=== PATIENT | female | born 1930 | race Caucasian/White ===

== ENCOUNTER 2016-11-25 21:35 | Inpatient (IN) | payer OTHER, MEDICARE ==
[~2016-11-25] VITALS: Ht 160 cm; Wt 94.4 kg
--- NOTE | ~2016-11-25 | EKG ---
[address] [address] ELECTROCARDIOGRAM REPORT Name: EZRA MORALES Room #: 205- ADM IN M.R.#: [id number] Admission: 11/25/16 Attend Phys: Hi Carranza MD Discharge: Date of : 31 Report #: [id number] THIS REPORT FOR: //name// [facility] Test Date: 2016-11-27 Test Time: 06:46:53 Pat Name: EZRA MORALES Department: Room: 205 P Gender: F Electrical Panel Builder: denia TEEB: 1930 Requested By: Eduardo Gloria Order Number: [id number] MD: Woo Griffin Measurements Intervals [place] Rate: 68 P: 43 [place]: 156 QRS: 73 QRSD: 105 T: 202 QT: 393 QTc: 418 Interpretive Statements Sinus rhythm Probable anteroseptal infarct, age indeterminate T wave abnormality, consider lateral ischemia Compared to ECG 11/26/2016 08:30:08 Lateral T wave abnormality is now present Electronically Signed On 11-27-2016 16:28:42 CDT by Woo Griffin [email or web address] <ELECTRONICALLY SIGNED> By: Woo Griffin MD, [facility] 11/27/16 1628 0646 0646 Woo Griffin MD, [facility] /EPI
--- NOTE | ~2016-11-25 | EKG ---
[address] [address] ELECTROCARDIOGRAM REPORT Name: EZRA MORALES Room #: 205- ADM IN M.R.#: [id number] Admission: 11/25/16 Attend Phys: Hi Carranza MD Discharge: Date of : 31 Report #: [id number] THIS REPORT FOR: //name// [facility] Test Date: 2016-11-28 Test Time: 06:34:05 Pat Name: EZRA MORALES Department: Room: 205 Gender: F Gluer Machine Setup Operator: denia TEEB: 1930 Requested By: Eduardo Gloria Order Number: [id number] MD: Woo Griffin Measurements Intervals [place] Rate: 70 P: 36 [place]: 158 QRS: 105 QRSD: 112 T: 211 QT: 375 QTc: 405 Interpretive Statements Sinus rhythm Left posterior fascicular block Probable anterior infarct, age indeterminate T wave abnormality, consider lateral ischemia Compared to ECG 11/27/2016 06:46:53 High lateral T wave abnormality is less pronounced Electronically Signed On 11-28-2016 8:33:25 CDT by Woo Griffin [email or web address] <ELECTRONICALLY SIGNED> By: Woo Griffin MD, [facility] 11/28/16 0833 0634 0634 Woo Griffin MD, [facility] /EPI
--- NOTE | ~2016-11-25 | H ---
[facility] [place] [address] HISTORY AND PHYSICAL Name: EZRA MORALES Room #: 205-P ADM IN M.R.#: [id number] Admission: 11/25/16 Attend Phys: Hi Carranza MD Discharge: Date of : 31 Report #: [id number] THIS REPORT FOR: //name// CC: Richard Carranza ATTENDING PHYSICIAN: Dr. Roberson. PRIMARY CARE PHYSICIAN: Dr. Benitez at [facility]. CHIEF COMPLAINT: Chest pain. HISTORY OF PRESENT ILLNESS: The patient is an 85-year-old female who presented to [facility] with complaints of chest pain that started this evening. She was sitting at rest when this pain came on across her mid chest and radiated across her chest and down into both arms. The pain was very heavy and tight. She did and felt nauseous, but did not vomit. She did not feel short of breath. She did have a slightly similar episode the night prior and she said it felt more like indigestion and she thought it was because she had eaten a lot of black eyed peas causing some GI upset. She was initially evaluated at an [facility] facility and her EKG showed ST elevation of V1 and aVR with ST depression in V4 through V6 and I and II. She was given Plavix 600 mg, nitroglycerin sublingual as well as nitro paste, Zofran, Lopressor and she was started on a heparin drip after discussions by the ER physician and Dr. Gloria with Cardiology here. She was transferred here for further cardiac evaluation. She said at some point her pain completely resolved and she is now resting comfortably. She does not take any current blood thinners. She does have a history of coronary artery disease with a prior MD and has 1 cardiac stent. She normally follows with Dr. Burnett. Her last heart catheterization was done in 2011 and showed a patent stent of the RCA that had been previously placed. There was mild left main disease. The circumflex was diffusely diseased. There was collateralization of the PDA, which was occluded and she was continued with aggressive risk factor modification. She states she had a stress test 3 years ago and she reports that there was a persistent defect that had been previously seen, but no new changes. She denies any recent exertional dyspnea or chest pain or indigestion episodes. Her initial troponin was 0.37. Her only complaint right now is slight headache. 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 PAST SURGICAL HISTORY: Right mastectomy, 1 cardiac stent, finger repair, ORIF of the tibia fibula, right shoulder repair. [address] [address] HISTORY AND PHYSICAL Name: CROWHUGOBIANCAEZRA M Room #: 205-P [facility] IN .R.#: [id number] Admission: 11/25/16 Attend Phys: Hi Carranza MD Discharge: Date of : 31 Report #: [id number] ALLERGIES: ASPIRIN caused nosebleed; BENZOCAINE, unknown reaction; LISINOPRIL, unknown reaction. HOME MEDICATIONS: Acyclovir 400 mg at bedtime, metformin 1000 mg p.o. b.i.d., levothyroxine 137 mcg daily, oxybutynin 5 mg p.o. t.i.d., coenzyme Q10 100 mg daily, daily and Lantus insulin 30 units at bedtime and gabapentin she thinks 300 mg twice a day. SOCIAL HISTORY: The patient is a never smoker. She does drink an occasional glass of wine. Denies any drug use. She lives at home alone. She is a . She ambulates with a walker. FAMILY HISTORY: Her mother had stroke and at the age of 84. Her father had an enlarged heart and at the age of 57. She denies any family members with coronary artery disease. REVIEW OF SYSTEMS: Twelve-point review of systems was reviewed with the patient, otherwise negative unless stated in the HPI. PHYSICAL EXAMINATION: GENERAL: The patient is an alert female in no acute distress. VITAL SIGNS: Temperature is 36.6, heart rate 99, respirations 18, blood pressure is 140/88, oxygen 96% on room air. HEENT: PERRLA. Sclerae nonicteric. Oral mucosa is pink and moist. NECK: Supple, no JVD noted. CARDIAC: Normal S1, S2. No murmurs, rubs or gallops. RESPIRATORY: Breath sounds are clear bilaterally. No wheezing or rhonchi. She is diminished in the right lower lobe. ABDOMEN: Obese, but soft and nontender with positive bowel sounds. VASCULAR: Both her feet are very cool and her pedal pulse on the right is 2+, but on the left was only dopplerable, it was not palpable. There was no mottling or cyanosis of the left foot. No peripheral edema noted and radial pulses are 2+ bilaterally. NEUROLOGIC: The patient is alert and oriented x 3. Speech is clear. She is moving all extremities equally. No focal neuro deficits noted. LABORATORY DATA AND DIAGNOSTICS: WBC is 6.5, hemoglobin 15.6, platelets 208. Sodium 143, potassium 3.8, BUN 13, creatinine 0.7, glucose 208, magnesium 1.6. Initial troponin was 0.37 and EKG showed marked ST abnormality with elevation of V1 and aVR with ST depression of V4 through V6 and leads I and II. There was an occasional PVC. ASSESSMENT AND PLAN: 1. Non-ST elevation myocardial infarction versus ST elevation myocardial infarction equivalent due to ST elevation of V1 and aVR. Cardiology has already [facility] [address] [place] [address] HISTORY AND PHYSICAL Name: EZRA MORALES Room #: 205-[facility] IN [facility]#: [id number] Admission: 11/25/16 Attend Phys: Hi Carranza MD Discharge: Date of : 31 Report #: [id number] been notified and she remains on a heparin drip. She was already loaded with Plavix and given nitroglycerin. We will check serial enzymes and continue to monitor on telemetry. She is now pain free. Continue plan per Cardiology. 2. Diabetes. Blood sugar is elevated. We will keep her n.p.o. for possible heart catheterization, but add sliding scale insulin and Accu-Cheks and then resume Lantus when taking p.o. 3. Hypomagnesium. This will be replaced. 4. Possible arterial compromise of the left lower extremity. Both her feet are cool, but on the left, there was no palpable pulse, this was obtained slightly by Doppler only. We will check an arterial ultrasound of the left lower extremity in the morning. Continue with heparin drip. 5. Hypertension. Blood pressure is stable. She is not on any current blood pressure medications at home, continue to monitor. 6. Hypothyroidism. Check TSH level. Continue Synthroid. 7. Hyperlipidemia. She is not on any current treatment since she has been intolerant to statins in the past. Check a lipid panel. 8. Obstructive sleep apnea. Continue with CPAP at home. 9. Chronic hypoxia due to a right paralyzed diaphragm post mastectomy. Continue with oxygen as at home. 10. Deep venous thrombosis prophylaxis: Continue with heparin drip for now. We will continue to follow the patient closely and make changes based on clinical status. <ELECTRONICALLY SIGNED> By: ELLE Judd 11/27/16 0838 0542 0725 ELLE Judd /nt
--- NOTE | ~2016-11-25 | HC ---
[facility] [place] [address] CONSULTATION Name: CARMENEZRA Michell Room #: 205-P [facility] IN M.R.#: [id number] Admission: 11/25/16 Attend Phys: Hi Carranza MD Discharge: 11/29/16 Date of : 31 Report #: [id number] THIS REPORT FOR: //name// CC: Richard Carranza DATE OF SERVICE: 11/29/2016 HISTORY OF PRESENT ILLNESS: The patient is an 85-year-old white female who was admitted to [facility] with chest pain, noted to have a non-ST elevation AR. She was diagnosed with coronary artery disease and underwent stenting of the proximal LAD. She diabetes mellitus. Her course was complicated by an episode of confusion and veering to the left. With further history, she notes she has had an issue with veering to the left even prior to this hospitalization, but appears worse. CT of the head was negative. EEG was nonspecific, consistent with encephalopathic changes. Neurology is continuing to follow. Internal Medicine has suspected cerebellar ischemia with persistent balance disturbance. Right vertebral flow was noted to not be identified with carotids with plaquing, but no high grade stenosis. MRI was not ordered. She has shoulder joint arthroplasty and a CTA was not ordered, as she is not amenable to intervention anyway per progress notes. The patient has decreased balance, some veering to the left. She has had a functional decline from her premorbid status and we are consulted regarding rehabilitation issues. 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 PAST SURGICAL HISTORY: Right mastectomy, one cardiac stent, finger repair, ORIF of the tib-fib, and right shoulder repair. ALLERGIES: ASPIRIN, BENZOCAINE, AND LISINOPRIL. MEDICATIONS: Please see the full medication listing as noted. HABITS: No history of tobacco abuse, occasional glass of wine. SOCIAL HISTORY: Lives in an apartment, apparently a remodeled home. She lives in her own apartment and her daughter lives upstairs. There are two steps in. She utilized a walker premorbidly and was on nasal prong O2 2.5-3 liters continuous. There is another daughter that is involved as well. REVIEW OF SYSTEMS: Did not offer any current complaints of chest pain, [address] [address] CONSULTATION Name: ZERA MORALES Room #: 205-P [facility] IN M.R.#: [id number] Admission: 11/25/16 Attend Phys: Hi Carranza MD Discharge: 11/29/16 Date of : 31 Report #: [id number] shortness of breath or abdominal discomfort. She notes she is always walks differently since she had the prior trauma to her left leg with an intramedullary edmond placed. She has concerns regarding the decreased balance/left veering. No focal extremity pain complaints. PHYSICAL EXAMINATION: GENERAL: She is a pleasant 85-year-old white female in no obvious distress. VITAL SIGNS: Last recorded temperature is 98.4, pulse 65, respirations 16, blood pressure 127/75. NEUROLOGIC: She is alert, pleasant, follows basic 1 step commands. Nasal prong O2 is in place. Facies are symmetric. Functional range of motion of both upper extremities, strength is grade 4-/5. DTRs are trace to 1. In the lower extremities, there is no focal calf swelling, functional range of motion, strength is grade 4-/5. DTRs are trace to 1. She is contact guard with sit to stand. Gait was 40 feet min assist with a front-wheeled walker. She is min assist for pivoting, slight lifting tendency to the left noted with attempt to turn to the right per physical therapy. With further assessment, the left lower extremity may be slightly weaker than the right lower extremity, which again she attributes back to the trauma that she has had and the surgery to that left leg. ASSESSMENT: An 85-year-old white female with the following problem list: 1. Apparent cerebellar ischemia with persistently balance disturbance. 2. Nonspecific EEG, could be consistent with encephalopathy. 3. Non-ST elevation myocardial infarction. 4. Coronary artery disease with stenting to the proximal LAD. 5. Diabetes mellitus. 6. Chronic hypoxia due to a right paralyzed diaphragm post-mastectomy. 7. Obstructive sleep apnea. 8. Hypertension. PREADMISSION SCREENIN. Prior level of function is well delineated above. 2. Expected level of improvement would be for the patient to become modified independent with transfers, mobility and ADLs at the walker level with improvement and balance so that she can return back to the home setting. Would anticipate length of stay of probably at least 7-10 days. 3. Evaluation of the patient's risk for clinical complications. She does have the multiple medical comorbidities as noted above. 4. Condition that caused the need for rehabilitation would be the cerebellar ischemia with persistently balance disturbance. 5. Treatments needed would include PT and OT 1 to 1-1/2 hours per day each five days a week throughout the duration of the acute inpatient rehabilitation stay. She may warrant some speech therapy as well. 6. Anticipated discharge destination would be back to the home setting. 7. Would anticipate home healthcare therapies once ready for discharge. 8. The patient meets diagnostic criteria for an acute in-hospital inpatient [facility] [address] [place] [address] CONSULTATION Name: EZRA MORALES Room #: 205-P [facility] IN M.R.#: [id number] Admission: 11/25/16 Attend Phys: Hi Carranza MD Discharge: 11/29/16 Date of : 31 Report #: [id number] rehabilitation stay. She meets medical necessity criteria. We would have the multiple sales consultant physicians continue to follow regarding rehab therapy needs. She does have the tolerance for an acute rehabilitation level and has appropriate discharge goals back to the home setting. PLAN: The patient is a candidate for an acute in-hospital inpatient rehabilitation stay. Bed availability issues will be checked. We will be glad to follow along with you regarding her rehab therapy needs. <ELECTRONICALLY SIGNED> By: Juan Macias MD 11/30/16 1608 1333 0433 Juan Macias MD /nt
--- NOTE | ~2016-11-25 | 2DMMODE ---
[facility] [address] [place] [address] 2 D/M-MODE ECHOCARDIOGRAM Name: EZRA MORALES Room #: 205-P [facility] IN M.R.#: [id number] Admission: 11/25/16 Attend Phys: Hi Carranza, Discharge: Date of : 31 Date of Service: 11/27/16 1214 Report #: [id number] THIS REPORT FOR: //name// APPROVED REPORT Study performed: 11/27/2016 08:11:02 EXAM: Comprehensive 2D, Doppler, and color-flow Echocardiogram Patient Location: Bedside Room #: [facility] Status: routine BSA: 1.95 HR: 70 bpm BP: 89/55 mmHg Other Information Study Quality: Adequate Indications NE Hx CAD, DM, HTN 2D Dimensions RVDd: 37.05 mm LVEF(%): 37.97 (>50%) IVSd: 17.93 (7-11mm) LVOT Diam: 21.26 (18-24mm) LVDd: 46.06 mm PWd: 15.38 (7-11mm) Ascending Ao: 25.55 (22-36mm) LVDs: 37.64 (25-40mm) Aortic Root: 27.42 mm IVC: 1.90 mm Ramos's LVEF: 37.97 % Volumes Left Atrial Volume (Systole) Single Plane 4CH: 95.22 mL Single Plane 2CH: 89.66 mL LA ESV Index: 53.00 mL/m2 Aortic Valve AoV Peak Leo.: 0.94 m/s AO Peak Gr.: 3.53 mmHg LVOT Max P.66 mmHg LVOT Max V: 0.41 m/s LV Vmax: 1.53 cm2 Mitral Valve E/A Ratio: 1.1 MV Decel. Time: 197.91 ms MV E Max Leo.: 0.72 m/s [facility] [place] [address] 2 D/M-MODE ECHOCARDIOGRAM Name: EZRA MORALES Room #: 205-P [facility] IN .R.#: [id number] Admission: 11/25/16 Attend Phys: Hi Carranza, Discharge: Date of : 31 Date of Service: 11/27/16 1214 Report #: [id number] MV A Leo.: 0.65 m/s MV PHT: 57.39 ms IVRT: 101.50 ms Pulmonary Valve PV Peak Leo.: 0.72 m/s PV Peak Gr.: 2.08 mmHg Tricuspid Valve TR Peak Leo.: 3.05 m/s RAP Estimate: 5.00 mmHg TR Peak Gr.: 37.12 mmHg PA Pressure: 42.00 mmHg Left Ventricle The left ventricle is normal size. Severe hypokinesis of inferior wall and inferoseptum Moderate to severe concentric left ventricular hypertrophy. Left ventricular systolic function is severely decreased. LVEF is 25-30%. Grade II - pseudonormal filling dynamics. Right Ventricle Right ventricle is dilated. Right ventricle is hypokinetic. Atria Left atrium is dilated. Right atrium is dilated. Aortic Valve Aortic valve is calcified. Trace aortic regurgitation. There is no aortic valvular stenosis. Mitral Valve Mitral valve leaflets are thickened. Trace mitral regurgitation. No evidence of mitral valve stenosis. Tricuspid Valve The tricuspid valve is normal in structure. There is trace to mild tricuspid regurgitation. The right atrial pressure is estimated at 5 mmHg. There is moderate pulmonary hypertension with an estimated PAP of 40 mmHg. Pulmonic Valve The pulmonary valve is normal in structure. Trace to mild pulmonic regurgitation. Great Vessels The aortic root is normal in size. The ascending aorta is normal in [address] [place] [address] 2 D/M-MODE ECHOCARDIOGRAM Name: CROWVIANEYEZRA Room #: 205-P [facility] IN [facility]#: [id number] Admission: 11/25/16 Attend Phys: Hi Carranza, Discharge: Date of : 31 Date of Service: 11/27/16 1214 Report #: [id number] size. IVC is normal in size and collapses >50% with inspiration. Pericardium There is no pericardial effusion. <Conclusion> Left ventricular systolic function is severely decreased. Severe hypokinesis of inferior wall and inferoseptum LVEF is 25-30%. Grade II - pseudonormal filling dynamics. Both atria are dilated. Aortic valve is calcified. No aortic valvular stenosis. Mitral valve leaflets are thickened. Trace mitral regurgitation. Pulmonary artery pressure of 40mmHg There is no pericardial effusion. <ELECTRONICALLY SIGNED> By: Woo Griffin MD, [facility] 11/27/16 1214 13 13 Woo Griffin MD, FACC /INF
--- NOTE | ~2016-11-25 | CATHLAB ---
[facility] [place] [address] INVASIVE PROCEDURE REPORT Name: CARMENEZRA Michell Room #: 205-P [facility] IN [facility]#: [id number] Admission: 11/25/16 Attend Phys: Hi Carranza, Discharge: Date of : 31 Date of Service: 11/27/16 [facility] Report #: [id number] THIS REPORT FOR: //name// APPROVED REPORT Patient Details Patient Status: In-Patient Room #: The patient is a 85 year-old female Event Personnel Eduardo Gloria Sheeter Machine Operator, Silvio Salguero RN, Zeina Quintanilla Sandifer, David Monitor Procedures Performed Left Heart Cath w/or w/o Coronaries [id number] [facility] , PTCA with Stenting Indication Non-STEMI , Dyspnea, Chest pain Risk Factors Peripheral Vascular Disease, Hypercholesterolemia, Coronary Artery DiseaseHypertension Previous Procedures/Diagnoses Previous PCI Procedure Narrative The Right Wrist^ was infiltrated with 1% Lidocaine subcutaneous anesthesia. A BRITE TIP 6FR X 23CM Sheath #[id number] sheath was inserted into the RFA^. Coronary angiography was performed using coronary diagnostic catheters. The left coronary system was accessed and visualized with a 5FR AL1 #[id number] catheter. The left ventricle was accessed and visualized with a 5FR AL1 #[id number] catheter. Left ventricular/Aortic Valve gradient assessed via catheter pullback. The patient tolerated the procedure well and there were no complications associated with the procedure. Intraoperative Conscious Sedation Sedation start time: 10.07 Case end Time: 11.55 Fentanyl 75.0 mcg Versed 1.0 mg Fluoro Time: 34.00 minutes Dose: 4172 mGy [facility] [address] [place] [address] INVASIVE PROCEDURE REPORT Name: EZRA MORALES Room #: 205-P [facility] IN [facility]#: [id number] Admission: 11/25/16 Attend Phys: Hi Carranza, Discharge: Date of : 31 Date of Service: 11/27/16 1600 Report #: [id number] Contrast Type and Amount: Visipaque 360 ml Coronary Angiography The patient's coronary anatomy is right dominant. Diagnostic Cath Left Main Large-caliber vessel, no flow limiting lesions. LAD Moderately calcified throughout. Severe, discrete stenosis in the proximal segment, 90%. There is moderate disease in the mid segment, 40%. Diagonal 1 Mild plaquing noted in the proximal segment. Circumflex Moderate stenosis at the ostium, 50-60%. Severe stenosis at the distal segment, just after the takeoff of the first OM. OM1 Mild disease in the proximal segment. Right Coronary Dominant vessel with a total occlusion at the ostium. The distal branches are filled via collateral circulation from the left circumflex and apical LAD. Left Ventriculography Left Ventriculography was not performed. Ejection Fraction was 30% based off patient's Echocardiogram. A left ventriculogram was not performed. The LVEDP was measured and there was no gradient across the LV outflow tract. Hemodynamics The aortic pressure is 120/76 mmHg with a mean of 91 mmHg. The left ventricular pressure is 120/29 mmHg with a mean of mmHg. The left ventricular end diastolic pressure is 34 mmHg. There was no gradient across the aortic valve upon pullback. Pullback from the left ventricle to the aorta revealed no gradient across the aortic valve. PCI Technique Lesion Anticoagulation was achieved with Angiomax. Percutaneous coronary intervention was performed on the proximal left anterior descending artery segment. A ZipnosisTA 6FR XB 4 #[id number] Guide Catheter was used to engage the LCA ostium. A 27 bardsge Wire .014 x 182CM #[id number] Interventional Guidewire was used to cross the lesion. BALLOON DILATION A Balloon catheter Rollerphora RX 2.5 x 10 #[id number] was inserted and inflated up to 10.00atm for 12seconds. Additional Inflation: 12.00atm for 14seconds. [address] [address] INVASIVE PROCEDURE REPORT Name: CARMENEZRA Michell Room #: 205-P [facility] IN M.R.#: [id number] Admission: 11/25/16 Attend Phys: Hi Carranza, Discharge: Date of : 31 Date of Service: 11/27/16 [facility] Report #: [id number] STENT DEPLOYMENT A drug-eluting stent RESOLUTE RX 3.0 X 12 #[id number] was inserted and inflated up to 18.00atm for 17seconds. Additional Inflation: 18.00atm for 19seconds. POST STENT DEPLOYMENT BALLOON DILATION A Balloon catheter Euphora NC RX 3.5 x 8 #[id number] was inserted and inflated up to 18.00atm for 17seconds. Final angiography reveals 5 % stenosis with MACKENZIE 3 flow. Conclusion 1. Successful insertion of a 3.0 mm drug-eluting stent into the proximal LAD, postdilated with a 3.5 mm noncompliant balloon. 2. Moderate to severe disease in the left circumflex artery. Recommend medical therapy. 3. Total occlusion of the RCA, with filling of the distal branches via collateral circulation from the left coronary artery. 4. Recommend dual antiplatelet therapy for at least 6 months. Recommendations Medical Therapy <ELECTRONICALLY SIGNED> By: Eduardo Gloria MD 11/27/161599 99 99 Eduardo Gloria MD /INF
--- NOTE | ~2016-11-25 | EKG ---
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1930 Requested By: Tana Dias Order Number: [id number] MD: Eduardo Gloria Measurements Intervals [place] Rate: 89 P: 41 NE: 154 QRS: 103 QRSD: 112 T: -80 QT: 372 QTc: 453 Interpretive Statements Sinus rhythm Left posterior fascicular block Anteroseptal infarct, old Nonspecific repol abnormality, diffuse leads Compared to ECG 09/10/2005 17:18:38 Left posterior fascicular block now present Myocardial infarct finding now present Early repolarization now present Electronically Signed On 11-26-2016 10:58:35 CDT by Eduardo Gloria [email or web address] <ELECTRONICALLY SIGNED> By: Eduardo Gloria MD 11/26/16 1058 9 9 Eduardo Gloria MD /EPI
--- NOTE | ~2016-11-25 | EKG ---
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1930 Requested By: Eduardo Gloria Order Number: [id number] MD: Eduardo Gloria Measurements Intervals [place] Rate: 91 P: 35 ID: 156 QRS: 73 QRSD: 109 T: -55 QT: 392 QTc: 483 Interpretive Statements Sinus rhythm Ventricular premature complex Probable left atrial enlargement Repol abnrm suggests ischemia, lateral leads Compared to ECG 09/10/2005 17:18:38 Ventricular premature complex(es) now present Possible ischemia now present Electronically Signed On 11-26-2016 10:57:42 CDT by Eduardo Gloria [email or web address] <ELECTRONICALLY SIGNED> By: Eduardo Gloria MD 11/26/16 1057 Eduardo Gloria MD /EPI
--- NOTE | ~2016-11-25 | HC ---
[facility] [place] [address] CONSULTATION Name: EZRA MORALES Room #: 205-P ADM IN M.R.#: [id number] Admission: 11/25/16 Attend Phys: Hi Carranza MD Discharge: Date of : 31 Report #: [id number] THIS REPORT FOR: //name// CC: Richard Carranza DATE OF SERVICE: 11/26/2016 INDICATION: Chest pain. HISTORY OF PRESENT ILLNESS: This is an 85-year-old female who was transferred from [facility] Emergency Room with a non-ST elevation MA. The patient reports developing substernal chest pain radiating down both arms, waking her up from a nap. In the ER at [facility], she was noted to have significant ST depressions in the anterolateral leads. The patient was treated with 600 mg of Plavix, nitroglycerin and IV heparin. The patient was subsequently transferred to [facility] for further evaluation. Her symptoms have resolved with medical therapy. The troponin is positive for a non-ST elevation MA. The patient is managed by Dr. Jerardo Burnett. Her last cardiac catheterization in 2011 revealed a tortuous abdominal and ascending aorta. There was a patent stent in the RCA. The left circumflex was diffusely diseased. There was collateral filling of a posterolateral branch. PAST MEDICAL HISTORY: CAD with remote history of stent to the RCA; history of breast cancer, status post mastectomy with resultant paralyzed right diaphragm. The patient is on chronic oxygen therapy at home. General debility, uses a walker for assistance with ambulation. History of hypertension, hypercholesterolemia, sleep apnea. Not on a statin medication, has a history of ALLERGY TO LIPITOR. ALLERGIES: LIPITOR, ASPIRIN, LISINOPRIL. CURRENT MEDICATIONS: At home include metformin, levothyroxine, coenzyme, insulin, Neurontin and acyclovir. SOCIAL HISTORY: Denies tobacco use. Lives with her daughter. FAMILY HISTORY: Negative for premature CAD. REVIEW OF SYSTEMS: A full 10-point review of systems performed. Only the pertinent positives and negatives are described in the HPI. PHYSICAL EXAMINATION: VITAL SIGNS: Blood pressure is 130/70, heart rate is 80 beats per minute. GENERAL APPEARANCE: This is an elderly appearing female in no acute respiratory distress. [address] [address] CONSULTATION Name: EZRA MORALES Room #: [address] [place] [address] IN ..#: [id number] Admission: 11/25/16 Attend Phys: Hi Carranza MD Discharge: Date of : 31 Report #: [id number] HEAD AND EYES: Normocephalic. Sclerae are anicteric. ENT: Oral mucosa moist. NECK: Supple. LUNGS: Clear to auscultation. CARDIAC: Regular rate and rhythm, S1, S2 positive. ABDOMEN: Soft. EXTREMITIES: No major joint deformities. Trace edema, no cyanosis. ECG at [facility] revealed sinus rhythm with marked ST depressions in the anterolateral leads. EKG on November 26 from [facility] revealed sinus rhythm, poor R-wave progression, nonspecific ST segment abnormalities. LABORATORY VALUES: Peak troponin is . ASSESSMENT AND PLAN: 1. Non-ST elevation myocardial infarction. The patient remains stable at this time. Would continue with Plavix and IV heparin. We will need to institute aspirin and a statin medication. In view of her presentation and cardiac history, would favor proceeding with a cardiac catheterization. She has known history of a tortuous aorta, may benefit from a radial artery approach. 2. Diabetes mellitus, continue with insulin and check fingersticks. 3. Hypercholesterolemia, intolerant to Lipitor. She had been stable with Crestor, which we will resume. 4. Gastrointestinal prophylaxis. Thank you for allowing me to participate in the care of your patient. <ELECTRONICALLY SIGNED> By: Eduardo Gloria MD 11/27/16 0804 1023 2121 Eduardo Gloria MD /nt
--- NOTE | ~2016-11-25 | EEG ---
[facility] [place] [address] ELECTROENCEPHALOGRAM Name: EZRA MORALES Room #: 205-P [facility] IN M.R.#: [id number] Admission: 11/25/16 Attend Phys: Hi Carranza MD Discharge: Date of : 31 Report #: [id number] THIS REPORT FOR: //name// CC: Richard Carranza DATE OF SERVICE: 11/28/2016 INDICATION FOR STUDY: This patient is being evaluated for altered mental status. INTERPRETATION: EEG was done by placing the electrodes by standard 10-20 system of electrode placement. Both referential and sequential montages were used for recording. Background activity in this patient's EEG is about 8 Hz and 25 microvolt. It is intermixed with theta range slowing on both sides. The patient appeared to be asleep during part of this EEG but even without sleep, the patient's EEG is intermixed with theta range slowing on both sides. Photic stimulation was unremarkable. Throughout the record, no active epileptiform activity was noticed. IMPRESSION: This patient's electroencephalogram is intermixed with theta range slowing on both sides. That is a nonspecific abnormality, which can occur with encephalopathy, effect of psychotropic medication, dementia, etc. Clinical correlation is recommended. By: [id number] [id number] Dylan Chaidez MD /nt
--- NOTE | ~2016-11-25 | EKG ---
[address] [address] ELECTROCARDIOGRAM REPORT Name: EZRA MORALES Room #: 205- ADM IN M.R.#: [id number] Admission: 11/25/16 Attend Phys: Hi Carranza MD Discharge: Date of : 31 Report #: [id number] THIS REPORT FOR: //name// [facility] Test Date: 2016-11-27 Test Time: 13:38:47 Pat Name: EZRA MORAELS Department: Room: 205 Gender: F Supervisor Cab: Genoveva TEEB: 1930 Requested By: Eduardo Gloria Order Number: [id number] MD: Woo Griffin Measurements Intervals [place] Rate: 64 P: 56 [place]: 158 QRS: 111 QRSD: 117 T: 138 QT: 416 QTc: 430 Interpretive Statements Sinus rhythm Left posterior fascicular block Probable anterior infarct, age indeterminate T wave abnormality, consider lateral ischemia Compared to ECG 11/26/2016 08:30:08 Inferior repolarization abnormality is present Electronically Signed On 11-28-2016 8:18:18 CDT by Woo Griffin [email or web address] <ELECTRONICALLY SIGNED> By: Woo Griffin MD, [facility] 11/28/16 0818 1338 1338 Woo Griffin MD, [facility] /EPI
[~2016-11-25 21:35] MED LIST: AMLODIPINE BESY10 MG PO; ASPIRIN EC325 M1 PO; BYSTOLIC20 MG PO; CALCIUM ASCORB500 MG PO; CO Q-10100 MG PO; CRESTOR20 MG PO; DIOVAN320 MG PO; GLUCOPHAGE1000 MG PO; HYDROCODON-ACE1 EAC8 PO; LANTUSSOLASTAR SUBQ; LEVOTHYROXIN0.137 M1 PO; OMEGA-3 + VITA1 EAC1 PO; TOVIAZ4 M1 PO; TURMERIC500 M2 PO; VITAMIN C + RO500 MG PO
[2016-11-25 22:49] VITALS: BP 140/88
[2016-11-26] MEDS ORDERED: OXYBUTYNIN 5 MG5 M2 PO
[2016-11-26] MEDS ORDERED: ACYCLOVIR 400400 MG PO (00:01)
[2016-11-26 00:45] VITALS: BP 128/62
[2016-11-26 04:30] VITALS: BP 121/72
[2016-11-26 07:52] LABS: CHOLESTEROL 183 mg/dL (<200); HDL CHOLESTEROL 46 mg/dL (>40); LDL CHOLESTEROL 123 mg/dL (<100); MAGNESIUM 2.2 mg/dL (1.8-2.4); TRIGLYCERIDE 72 mg/dL (<150); VLDL 14 mg/dL (<40)
[2016-11-26 11:14] VITALS: BP 107/63
[2016-11-26 19:40] VITALS: BP 90/56
[2016-11-27 03:26] VITALS: BP 89/55
[2016-11-27 06:19] LABS: BASOPHILS 1.3 % (0.0-2.0); EOSINOPHILS 2.2 % (0.0-3.0); HEMATOCRIT 41.4 % (37.0-47.0); HEMOGLOBIN 13.7 gm/dL (12.0-15.0); LYMPHOCYTES 20.7 % (24.0-44.0); MCH 35.5 pg (26.0-34.0); MCHC 33.2 g/dL (28.0-37.0); MCV 107.1 fL (80.0-100.0); MONOCYTES 9.3 % (1.0-8.0); PLATELET COUNT 209 thou/uL (150-400); POLYS 66.5 % (36.0-66.0); RBC 3.87 mil/uL (4.20-5.00); RDW 12.9 % (10.5-14.5)
[2016-11-27 06:35] LABS: MANUAL DIFF NO
[2016-11-27 06:37] LABS: ALBUMIN 3.1 g/dL (3.4-5.0); CALCIUM 8.8 mg/dL (8.5-10.1); CREATININE 1.2 mg/dL (0.6-1.0); POTASSIUM 4.6 mmol/L (3.5-5.1); TOTAL BILIRUBIN 0.4 mg/dL (<0.1-1.0); TOTAL PROTEIN 6.1 g/dL (6.4-8.2)
[2016-11-27 07:21] VITALS: BP 98/58
[2016-11-27 12:44] VITALS: BP 109/61
[2016-11-27 15:15] VITALS: BP 108/69
[2016-11-27 23:04] VITALS: BP 90/53
[2016-11-28 02:06] LABS: GLYCOHEMOGLOBIN (HGB A1C) 7.1 % (4.8-5.6)
[2016-11-28 03:47] LABS: HEMATOCRIT 40.4 % (37.0-47.0); HEMOGLOBIN 13.4 gm/dL (12.0-15.0); MCH 35.5 pg (26.0-34.0); MCHC 33.2 g/dL (28.0-37.0); MCV 107.1 fL (80.0-100.0); RBC 3.77 mil/uL (4.20-5.00); WBC 7.2 thou/uL (4.0-11.0)
[2016-11-28 04:07] LABS: CALCIUM 8.9 mg/dL (8.5-10.1); CREATININE 0.9 mg/dL (0.6-1.0); POTASSIUM 4.6 mmol/L (3.5-5.1)
[2016-11-28 04:14] LABS: TROPONIN-I 18.63 ng/mL (<0.04-0.07)
[2016-11-28 05:33] VITALS: BP 121/74
[2016-11-28 07:14] VITALS: BP 126/65
[2016-11-28 11:37] VITALS: BP 110/45
[2016-11-28 13:36] LABS: FOLIC ACID 17.2 ng/mL (8.6-58.9)
[2016-11-28 15:48] VITALS: BP 109/62
[2016-11-28 19:42] VITALS: BP 115/65
[2016-11-29 00:06] LABS: FREE T4 1.46 ng/dL (0.82-1.77)
[2016-11-29 03:22] VITALS: BP 122/59
[2016-11-29 04:12] LABS: GLYCOHEMOGLOBIN (HGB A1C) 7.3 % (4.8-5.6)
[2016-11-29 07:15] VITALS: BP 133/81
[2016-11-29] MEDS ORDERED: PLAVIX 75 MG TA75 M1 PO (07:57)
[2016-11-29] MEDS ORDERED: METOPROLOL SUCC50 MG PO (07:57)
[2016-11-29] MEDS ORDERED: COZAAR 50 MG TA50 M1 PO (07:57)
[2016-11-29] MEDS ORDERED: ASPIR 8181 MG PO (07:57)
[2016-11-29] MEDS ORDERED: LIPITOR 20 MG T20 M1 PO (07:57)
[2016-11-29] MEDS ORDERED: NEURONTIN 300300 M1 PO (09:59)
[2016-11-29] MEDS ORDERED: TRAMADOL 50 MG50 MG PO (09:59)
[2016-11-29] MEDS ORDERED: ACETAMINOPHEN325 M1 PO (09:59)
[2016-11-29 11:14] VITALS: BP 127/75
[2016-12-01 13:08] LABS: ALPHA TOCOPHEROL 15.5 mg/L (6.5-21.5)
== END 2016-11-29 17:14 | DRG 246 ==
LOC: 2N 21:35
PROVIDERS: Family Medicine; Internal Medicine Cardiovascular Disease; Nurse Practitioner Acute Care; Psychiatry & Neurology Neurology
PROC: 027034Z Dilation of Coronary Artery, One Artery with Drug-eluting Intraluminal Device, Percutaneous Approach (ICD-10-PCS; principal; 2016-11-27)
PROC: B2111ZZ Fluoroscopy of Multiple Coronary Arteries using Low Osmolar Contrast (ICD-10-PCS; principal; 2016-11-27)
PROC: 4A023N7 Measurement of Cardiac Sampling and Pressure, Left Heart, Percutaneous Approach (ICD-10-PCS; principal; 2016-11-27)
DX: I21.4 Non-ST elevation (NSTEMI) myocardial infarction (principal); N17.0 Acute kidney failure with tubular necrosis; I25.10 Atherosclerotic heart disease of native coronary artery without angina pectoris; I10 Essential (primary) hypertension; E78.00 Pure hypercholesterolemia, unspecified; E11.9 Type 2 diabetes mellitus without complications; E78.5 Hyperlipidemia, unspecified; E03.9 Hypothyroidism, unspecified; G47.33 Obstructive sleep apnea (adult) (pediatric); G83.9 Paralytic syndrome, unspecified; I99.8 Other disorder of circulatory system; M81.0 Age-related osteoporosis without current pathological fracture; E83.42 Hypomagnesemia; Z85.3 Personal history of malignant neoplasm of breast; Z90.11 Acquired absence of right breast and nipple; Z88.6 Allergy status to analgesic agent; Z88.8 Allergy status to other drugs, medicaments and biological substances; Z82.3 Family history of stroke
CPT/HCPCS: 10081

== ENCOUNTER 2016-11-29 15:16 | Inpatient (IN) | payer OTHER, MEDICARE ==
[~2016-11-29] VITALS: Ht 160 cm; Wt 103.0 kg
--- NOTE | ~2016-11-29 | H ---
[facility] [place] [address] HISTORY AND PHYSICAL Name: EZRA MORALES Room #: 516-1 ADM IN M.R.#: [id number] Admission: 11/29/16 Attend Phys: Juan Macias MD Discharge: Date of : 31 Report #: [id number] THIS REPORT FOR: //name// CC: Juan Benitez DATE OF SERVICE: 11/30/2016 HISTORY AND PHYSICAL AND POSTADMISSION PHYSICIAN EVALUATION HISTORY OF PRESENT ILLNESS: An 85-year-old white female who was originally admitted to [facility] with chest pain, noted to have a non-ST elevation VA. She was diagnosed with coronary artery disease, underwent stenting of the proximal LAD. She has diabetes mellitus. Her course was complicated by an episode of confusion and veering to the left when up. With further history, she notes she has had an issue with veering to the left even prior to this hospitalization, but it appeared worse. CT of the head was negative. EEG was nonspecific consistent with an encephalopathy changes. Neurology has been involved. Internal medicine suspected cerebral ischemia with persistent balance disturbance. Right vertebral flow was noted to not be identified with carotids with plaquing but no high-grade stenosis. MRI was not ordered as she has shoulder joint arthroplasty and CTA was not ordered as she was not amenable to intervention any way per progress notes. She was noted to have decreased balance with some veering to the left. She was noted to have a functional decline from her premorbid status. She was admitted for acute in-hospital inpatient rehabilitation. 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 PAST SURGICAL HISTORY: Includes right mastectomy. Cardiac stent finger repair ORIF of the tib/fib and right shoulder repair. ALLERGIES: ASPIRIN, BENZOCAINE AND LISINOPRIL. MEDICATIONS: Please see the full medication listing. Each of the medications was individually reconciled and includes vitamins, herbals and supplements. HABITS: No history of tobacco abuse. Occasional glass of wine. SOCIAL HISTORY: Lives in an apartment apparently a remodeled home. She lives in her own apartment and her daughter lives upstairs. There were two [facility] [address] [place] [address] HISTORY AND PHYSICAL Name: EZRA MORALES Room #: 516-1 [facility] IN [facility]#: [id number] Admission: 11/29/16 Attend Phys: Juan Macias MD Discharge: Date of : 31 Report #: [id number] steps in. She utilized a walker premorbidly and was on nasal prong O2, 2.5 to 3 liters continuous. There is another daughter who is involved as well. REVIEW OF SYSTEMS: No current complaints of chest pain, shortness of breath, abdominal discomfort. She indicated that she always has walked differently since she had the prior trauma to her left leg with intramedullary edmond placed. No focal extremity pain complaints. PHYSICAL EXAMINATION: GENERAL: The patient was seen earlier with somewhat sleepy, no obvious distress. VITAL SIGNS: Temperature 36.3, pulse 57, respirations 18, 126/73. HEENT: Facies appeared to be symmetric. CHEST: Sounded clear to auscultation. CARDIOVASCULAR: Regular rate and rhythm. ABDOMEN: Bowel sounds positive, nontender. She is obese. GENITOURINARY AND RECTAL: Deferred. NEUROLOGIC: She is on nasal prong O2. Functional range of motion of both upper extremities with strength grade 4-/5. DTRs are trace to 1. Lower extremities, no focal calf swelling, functional range of motion with strength grade 4-/5. DTRs are trace to 1. She has been needing min assist when up with the walker with some left listing. ASSESSMENT: An 85-year-old white female with the following problems: 1. Apparent cerebrovascular ischemia with persistent balance disturbance. 2. Nonspecific electroencephalogram could be consistent with encephalopathy. 3. Non-ST elevation myocardial infarction. 4. Coronary artery disease with stenting to the proximal LAD. 5. Diabetes mellitus. 6. Chronic hypoxia due to a right paralyzed diaphragm postmastectomy. 7. Obstructive sleep apnea. 8. Hypertension. PLAN: The patient is admitted for acute in-hospital inpatient rehabilitation. From a postadmission physician evaluation perspective, there are no relevant changes since the preadmission screening. Please see the above review of prior and current medical and functional conditions and comorbidities. Please see the patient's prior and current functional status. As far as risk of complications, the patient has multiple medical comorbidities as noted above. Initial plan of care involves the interdisciplinary acute inpatient rehabilitation program with the goal of maximizing the patient's functional independence, so that she can hopefully return back to her prior living situation. Would anticipate length of stay of probably around at least 7-10 days, potentially longer if needed. Her prognosis is reasonably good. Potential barriers would include her multiple medical comorbidities and decreased functional status. [facility] [address] [place] [address] HISTORY AND PHYSICAL Name: EZRA MORALES Room #: 516-1 ADM IN M.R.#: [id number] Admission: 11/29/16 Attend Phys: Juan Macias MD Discharge: Date of : 31 Report #: [id number] The patient meets diagnostic criteria for an acute in-hospital inpatient rehabilitation stay. She meets medical necessity criteria. She does have the tolerance for an acute rehabilitation level and has appropriate discharge goals back to the home setting. <ELECTRONICALLY SIGNED> By: Juan Macias MD 12/06/16 1232 1110 1141 Juan Macias MD /[facility]
--- NOTE | ~2016-11-29 | PLAN ---
[facility] [place] [address] REHAB UNIT PLAN OF CARE Name: EZRA MORALES Room #: 516-1 ADM IN M.R.#: [id number] Admission: 11/29/16 Attend Phys: Juan Macias MD Discharge: Date of : 31 Report #: [id number] THIS REPORT FOR: //name// CC: Juan Benitez DATE OF SERVICE: 12/01/2016 SUBJECTIVE: The patient is seen back today in followup. She is in no distress. OBJECTIVE: VITAL SIGNS: Last recorded temperature is 97.6, 58 pulse, 18 respirations, 123/72 blood pressure. GENERAL: The patient was pleasant, eating breakfast in the dining area, in no distress. She transfers with contact guard assistance. Gait is min assist 50 feet with the 4-wheeled walker. In occupational therapy, upper body dressing is min assist. Lower body dressing, moderate assistance. ASSESSMENT: 1. Apparent cerebrovascular ischemia with persistent balance disturbance. 2. Nonspecific EEG could be consistent with encephalopathy. 3. Non-ST elevation myocardial infarction. 4. Coronary artery disease with stenting to the proximal left anterior descending. 5. Diabetes mellitus. 6. Chronic hypoxia to right paralyzed diaphragm post-mastectomy. 7. Obstructive sleep apnea. 8. Hypertension. PLAN: The overall plan of care is based on the preadmission screen, post-admission physician evaluation and information garnered from therapy assessments. 1. Estimated length of stay is probably 10-14 days and potentially longer as warranted. 2. Medical prognosis is reasonably good. 3. Anticipated interventions includes the interdisciplinary acute inpatient rehabilitation program with the goal of maximizing the patient's functional independence, so that she can hopefully return back to her prior living situation. 4. Anticipated functional outcomes would be for her to be modified independent at least at the walker level with mobility and ADLs. 5. Discharge destination would be back home with her daughter. 6. Expected therapy by discipline includes PT and OT 1 and 1-1/2 hours per day [address] [address] REHAB UNIT PLAN OF CARE Name: EZRA MORALES Room #: 516-1 [facility] IN ..#: [id number] Admission: 11/29/16 Attend Phys: Juan Macias MD Discharge: Date of : 31 Report #: [id number] each five days a week throughout the duration of the acute inpatient rehabilitation stay. <ELECTRONICALLY SIGNED> By: Juan Macias MD 12/06/16 1232 0939 1529 Juan Macias MD /[facility]
--- NOTE | ~2016-11-29 | HC ---
[facility] [place] [address] CONSULTATION Name: EZRA MORALES Room #: 516-1 [facility] IN M.R.#: [id number] Admission: 11/29/16 Attend Phys: Juan Macias MD Discharge: 12/07/16 Date of : 32 Report #: [id number] THIS REPORT FOR: //name// CC: Juan Benitez DATE OF SERVICE: 12/02/2016 NEUROBEHAVIORAL STATUS EXAM ATTENDING PHYSICIAN: Juan Macias M.D. GREENHOUSE STAFF: Charanjit Cotton, PhD. CLINICAL PRESENTATION: The patient is an 85-year-old female admitted to the [facility] for a comprehensive inpatient rehabilitation program to improve functional mobility, activities of daily living and self-care and mental status secondary to a CVA with persistent balance disturbance. She also has had a nonspecific electroencephalogram that was consistent with encephalopathy. Her diagnoses include Non-ST elevation myocardial infarction, coronary artery disease and stenting, diabetes mellitus, chronic hypoxia due to a right paralyzed diaphragm post mastectomy, obstructive sleep apnea and hypertension. A complete description of her medical condition and history can be found in her medical record. Neuropsychological consultation was requested to provide assistance in the assessment of cognitive and emotional status and to provide recommendations and services. Prior to this most recent admission, she reports living independently in her own home. Her daughter reportedly lives above her. She is a high school graduate. The patient has 3 surviving children. She had 1 son that at age 45. She also is 14 years ago. The patient reports having worked for [employer] prior to her fci. TECHNIQUES UTILIZED: Clinical interview, review of medical records, staff consultation and behavioral observation, mini mental status exam 2 standard version, and calibrated ideational fluency assessment (letter and category). EXAMINATION FINDINGS: The patient was alert and cooperative with the assessment. She was partially aware of the reason for her hospitalization. She acknowledged having a heart attack, but was unaware of the cerebellar ataxia. She reports having macular degeneration and having shingles affecting her vision in her eye. She also indicates taking gabapentin, which has had an impact on verbal fluency and word finding. Visual disturbance is severe. She indicates taking and managing her own medication; however, she relies on the feel of the pills because she indicates she is unable to see them. Poor judgment and decreased insight is suggested by her ability to try to manage medication [facility] [address] [place] [address] CONSULTATION Name: EZRA MORALES Room #: 516-1 [facility] IN .R.#: [id number] Admission: 11/29/16 Attend Phys: Juan Macias MD Discharge: 12/07/16 Date of : 32 Report #: [id number] without assistance. She does not present with aphasia. There is no evidence of auditory or visual hallucinations. She does not report difficulty with anxiety, depression or cognition. Her performance on the MMSE 2 brief version suggests mild impairment with a raw score of 13 of 16. The patient was not oriented to date. She was 1/3 correct for immediate recall of 3 items after a brief time delay and distraction. Her performance on the MMSE 2 standard version indicates more moderate level of impairment is primarily result of visual disturbance. She is unable to write or copy a simple geometric design. She was able to read a sentence and follow its command. Visual disorder though affected visual comprehension for more complex information, although naming was within normal limits and she could repeat single sentences. Letter fluency was within normal limits with a raw score of 22 and a T score of 49. Category fluency was within normal limits with a raw score of 32 and a T score of 45. Total verbal fluency was a raw score of 54 and a T score of 48, which is within normal limits. The patient is presenting with variability in insight and judgment. She will need assistance in the management of medication and aspects of functioning that require visual acuity. Subtle difficulty in memory is suggested. DIAGNOSTIC IMPRESSION: Neurocognitive disorder, due to medical etiology, with decreased insight -- extent to be determined, likely in the mild to moderate range. RECOMMENDATIONS: Her daughter will need to provide increased assistance in order to maintain safety with the management of medication. The patient is not likely to initiate request for help and will require increased assistance to maintain safety. Verbal praise and complements about participation in therapy and the use of environmental cues for which she is able to see to provide structure and organization. Assistance in the management of medication, nutrition and finances will be necessary. Thank you very much for allowing me to provide the consultation on this patient. <ELECTRONICALLY SIGNED> By: Charanjit Cotton, PhD 12/09/16 [id number] Charanjit Cotton, PhD /nt
[~2016-11-29 15:16] MED LIST changes: +ACETAMINOPHEN325 M1 PO; +ACYCLOVIR 400400 MG PO; +ASPIR 8181 MG PO; +COZAAR 50 MG TA50 M1 PO; +LIPITOR 20 MG T20 M1 PO; +METOPROLOL SUCC50 MG PO; +NEURONTIN 300300 M1 PO; +OXYBUTYNIN 5 MG5 M2 PO; +PLAVIX 75 MG TA75 M1 PO; +TRAMADOL 50 MG50 MG PO
[2016-11-29 20:13] VITALS: BP 120/63
[2016-11-30 08:36] VITALS: BP 126/73
[2016-11-30 20:06] VITALS: BP 123/72
[2016-12-01 07:59] LABS: ABSOLUTE NEUTROPHILS 5.8 thou/uL (1.4-8.2); BASOPHILS 0.7 % (0.0-2.0); EOSINOPHILS 1.8 % (0.0-3.0); HEMATOCRIT 40.5 % (37.0-47.0); HEMOGLOBIN 13.5 gm/dL (12.0-15.0); LYMPHOCYTES 12.3 % (24.0-44.0); MCH 35.7 pg (26.0-34.0); MCHC 33.2 g/dL (28.0-37.0); MCV 107.7 fL (80.0-100.0); MONOCYTES 10.5 % (1.0-8.0); PLATELET COUNT 189 thou/uL (150-400); POLYS 74.7 % (36.0-66.0); RBC 3.77 mil/uL (4.20-5.00); RDW 13.2 % (10.5-14.5); WBC 7.8 thou/uL (4.0-11.0)
[2016-12-01 08:00] VITALS: BP 98/52
[2016-12-01 08:06] LABS: MANUAL DIFF NO
[2016-12-01 08:25] LABS: ALBUMIN 3.1 g/dL (3.4-5.0); CALCIUM 8.8 mg/dL (8.5-10.1); MAGNESIUM 2.1 mg/dL (1.8-2.4); POTASSIUM 4.8 mmol/L (3.5-5.1); TOTAL BILIRUBIN 0.5 mg/dL (<0.1-1.0)
[2016-12-01 19:21] VITALS: BP 122/64
[2016-12-01 19:22] VITALS: BP 91/67
[2016-12-01 19:23] VITALS: BP 153/97
[2016-12-02 08:00] VITALS: BP 124/62
[2016-12-02 20:11] VITALS: BP 125/61
[2016-12-03 08:00] VITALS: BP 139/57
[2016-12-03 19:14] VITALS: BP 143/69
[2016-12-04 03:59] LABS: HEMATOCRIT 40.7 % (37.0-47.0); HEMOGLOBIN 13.4 gm/dL (12.0-15.0); MCH 35.5 pg (26.0-34.0); MCV 107.5 fL (80.0-100.0); RBC 3.79 mil/uL (4.20-5.00); RDW 13.4 % (10.5-14.5); WBC 5.2 thou/uL (4.0-11.0)
[2016-12-04 10:25] VITALS: BP 152/76
[2016-12-04 20:20] VITALS: BP 140/73
[2016-12-05 08:35] VITALS: BP 148/78
[2016-12-05 19:54] VITALS: BP 149/63
[2016-12-06] MEDS ORDERED: CRESTOR10 MG PO ×2 (06:58→08:54)
[2016-12-06] MEDS ORDERED: CLOPIDOGREL75 MG PO (08:54)
[2016-12-06] MEDS ORDERED: METOPROLOL SUCC50 MG PO (08:54)
[2016-12-06] MEDS ORDERED: PLAVIX 75 MG TA75 M1 PO (08:54)
[2016-12-06] MEDS ORDERED: ASPIR 8181 MG PO (08:54)
[2016-12-06 19:48] VITALS: BP 139/68
[2016-12-07 09:59] VITALS: BP 135/64
[2016-12-07 11:23] VITALS: BP 135/64
[2016-12-07 15:04] VITALS: BP 135/64
== END 2016-12-07 15:41 | disposition home health service (06) | DRG 69 ==
LOC: ENTRNSPT 12-07 15:24 → EDTRNSPTSTS 12-07 15:27
PROVIDERS: Nurse Practitioner; Physical Medicine & Rehabilitation
DX: I67.82 Cerebral ischemia (principal); I21.4 Non-ST elevation (NSTEMI) myocardial infarction; G93.40 Encephalopathy, unspecified; I25.10 Atherosclerotic heart disease of native coronary artery without angina pectoris; E11.9 Type 2 diabetes mellitus without complications; G47.33 Obstructive sleep apnea (adult) (pediatric); I10 Essential (primary) hypertension; G31.84 Mild cognitive impairment of uncertain or unknown etiology; R53.81 Other malaise; K59.00 Constipation, unspecified; E83.42 Hypomagnesemia; E78.5 Hyperlipidemia, unspecified; H40.9 Unspecified glaucoma; R26.81 Unsteadiness on feet; I25.5 Ischemic cardiomyopathy; E78.00 Pure hypercholesterolemia, unspecified; Z90.11 Acquired absence of right breast and nipple; Z88.6 Allergy status to analgesic agent; Z88.8 Allergy status to other drugs, medicaments and biological substances; Z99.81 Dependence on supplemental oxygen
CPT/HCPCS: 10112